=== PATIENT | female | born 1970 | race African-American/Black ===

== ENCOUNTER 2018-03-21 04:52 | Day surgery (SDC) | payer OTHER ==
[2018-03-19 13:59] VITALS: BMI 22.3
[2018-03-21] MEDS ORDERED: MIDAZOLAM HCL 2 MG/2 ML SINGLE DOSE VIAL ONE (11:04)
[2018-03-21] MEDS ORDERED: PROPOFOL 20 ML ONE (11:04)
[2018-03-21] MEDS ORDERED: DEXAMETHASONE SOD PHOSPHATE 4 MG/1 ML VIAL ONE (11:04)
[2018-03-21] MEDS ORDERED: oxyCODONE HCL 5 MG TABLET PO PRN (11:05)
[2018-03-21] MEDS ORDERED: ONDANSETRON 4 MG/2 ML VIAL IVPUSH PRN (11:05)
[2018-03-21] MEDS ORDERED: PROMETHAZINE HCL 25 MG/1 ML VIAL IVPUSH PRN (11:05)
[2018-03-21] MEDS ORDERED: LACTATED RINGERS SOLUTION 1,000 ML IV SCH (11:15)
--- NOTE | 2018-03-21 11:22 | HP ---
History & Physical Update - History History: No Change Currently as noted:: Prior H&P from 02/20/18 was reveiwed - Physical Physical: No Change - Assessment Assessment: No Change - Plan Plan: No Change (47yo P0 with fibroid uterus, and endometrial mass(es) admitted for hysteroscopy, resection of endom mass(es), and D&C. We had discussed the risks, benefits, alternatives of surgery at length including but not limited to infection, bleeding, scarring, perforation, amenorrhea, infertility, hysterectomy, etc. The pt verbalized understanding and requested to proceed with surgery. I emphasized that all surgeries have risks and no guarantees can be provided.)
[2018-03-21] MEDS ORDERED: ceFAZolin SODIUM 1 GM VIAL IVPB ONE (11:36)
--- NOTE | 2018-03-21 14:37 | OP ---
Operative Note - Note: Operative Date: 03/21/18 Pre-Operative Diagnosis: Endometrial mass, fibroid uterus Operation: Hysteroscopic myomectomy, D&C Findings: 1. EUA revealed a large and bulky uterus with multiple fibroids, including a large posterior myoma filling sacral space and displacing the uterus anteriorly. 2. Hysteroscopy revealed enlarged uterine cavity with a right lateral lower uterine submucosal myoma and a larger left lateral submucosal myoma below left cornual region Post-Operative Diagnosis: Same as Pre-op Surgeon: Ashvin Onofre Anesthesiologist/NOVELTY CHAIN MAKER: Radha Tijerina (Dr. Soto) Anesthesia: General Specimens Removed: fragments of uterine myoma(s), endometrial curettings Estimated Blood Loss (mls): 30 Blood Volume Replaced (mls): 0 Fluid Volume Replaced (mls): 800 Operative Report Dictated: Yes
[2018-03-21 15:01] VITALS: BP 130/75; PULSE 63; TEMP 97.5
--- NOTE | 2018-03-22 06:43 | OP ---
DATE OF OPERATION: 03/21/2018 PREOPERATIVE DIAGNOSIS: Endometrial masses, fibroid uterus. POSTOPERATIVE DIAGNOSIS: Fibroid uterus with submucosal myomas. PROCEDURE: Hysteroscopy, myomectomy, dilation and curettage. SURGEON: Krunal Onofre MD ANESTHESIOLOGIST: Jensen Soto MD and Radha Tijerina CRNA ANESTHESIA: General. COMPLICATIONS: None. ESTIMATED BLOOD LOSS: 30 mL. IV FLUIDS: 800 mL of crystalloid. PATHOLOGY: Fragments of uterine myomas status post resection, endometrial curettings. COMPLICATIONS: None. FINDINGS: Examination under anesthesia revealed a large, bulky fibroid uterus. Multiple fibroids were noted on pelvic examination including a large posterior myoma filling the sacral space and displacing the uterus anteriorly. During the hysteroscopy, the cervix was noted to be displaced anteriorly, and the uterine cavity contained a smaller right lateral myoma in the lower uterine segment as well as a larger left lateral submucosal myoma just below the left corneal region of the uterus. DESCRIPTION OF PROCEDURE: The patient was met preoperatively. Risks, benefits, and alternatives of surgery were discussed. The risks of procedure were explained including, but not limited to, infection, perforation, bleeding, scarring, amenorrhea, infertility, possible need for hysterectomy, possible need for additional surgery to repair any complications. The patient verbalized understanding. The consent form was reviewed and signed. The patient requested to proceed with surgery. She was then taken to the OR with the IV running. The patient was placed on the surgical table in the supine position. The general endotracheal anesthesia was achieved without difficulty. The patient was then placed in a dorsal lithotomy position using adjustable Dominic stirrups. She was examined under anesthesia with the findings as described above. The patient was then prepped and draped in the usual sterile fashion. A time-out procedure was conducted as per standard protocol. A weighed speculum was then introduced inside the patient's vagina. The cervix was visualized and grasped with a single-tooth tenaculum. The cervical os was dilated to accommodate a size 23 Snyder dilator. A hysteroscope was then introduced under direct visualization into the uterine cavity. The survey of the uterine cavity revealed an enlarged uterine cavity with polypoid-appearing endometrium. A smaller submucosal fibroid was noted in the right lateral region of the lower uterine segment. A larger submucosal myoma was noted in the left upper region of the uterus just below the cornua. The larger fibroid measured approximately 3 cm. The rest of the uterine cavity appeared to be within normal limits. A Symphion resectoscope was then used to excise all visualized submucosal fibroids. A normal uterine cavity was noted at the end of the procedure. Good hemostasis was also confirmed. Once the resection of the fibroids was completed, the hysteroscope was removed from the patient. A general uterine curettage was performed. The tissue was sent to Pathology. Once again, the hysteroscope was introduced inside the uterine cavity, and good hemostasis was confirmed. Following this, all of the all of the instruments were removed from the patient. Sponge, lap, and instrument counts were correct. Once again, good hemostasis was confirmed. The patient was then returned to supine position. She was transferred to recovery room awake and in stable condition. KRUNAL ONOFRE M.D. [id number]
--- NOTE | 2018-03-25 15:13 | PATH ---
Surgical Pathology Report Patient Name: GINA BERNAL [facility]. Rec. #: [id number] /Age/Gender: 1970 (Age: 47) / F Account: [id number] Location: [facility] SURGICAL Taken: 03/21/2018 Received: 03/24/2018 Reported: 03/25/2018 Physicians: Ashvin Onofre M.D. Specimen(s) Received A: ENDOMETRIAL CURETTINGS B: FIBROIDS Clinical History Fibroid uterus, polyp of corpus uteri Final Diagnosis A. ENDOMETRIAL CURETTINGS, DILATION AND CURETTAGE: FRAGMENTS OF PROLIFERATIVE ENDOMETRIUM AND SMOOTH MUSCLE FRAGMENTS CONSISTENT WITH LEIOMYOMA. SCANT BENIGN CERVICAL TISSUE. B. FIBROIDS, HYSTEROSCOPIC FIBROID RESECTION: BROAD BUNDLES OF SMOOTH MUSCLE CONSISTENT WITH LEIOMYOMA AND FRAGMENTS OF ENDOMETRIAL POLYP. SCANT BENIGN ENDOCERVICAL TISSUE. Electronically Signed Becca Cali M.D. Gross Description A. Received in formalin labeled "endometrial curettings," is a 4.0 x 3.0 x 0.3 cm aggregate of piña-brown soft tissue fragments admixed with blood clot. The formalin is filtered and the specimen is entirely submitted in 3 cassettes. B. Received in formalin labeled "fibroids," is a 2.8 x 2.5 x 0.3 cm aggregate of piña soft tissue fragments admixed with mucus. The specimen is submitted in toto in 2 cassettes. 03/24/2018 [facility]03/24/2018
== END 2018-03-21 15:30 | disposition home or self-care (01) ==
LOC: JASU-SURG 04:52
PROVIDERS: ATTEND Obstetrics & Gynecology
PROC: 0UB98ZZ Excision of Uterus, Via Natural or Artificial Opening Endoscopic (ICD-10-PCS; 2018-03-21)
PROC: 0UDB7ZX Extraction of Endometrium, Via Natural or Artificial Opening, Diagnostic (ICD-10-PCS; principal; 2018-03-21 10:30)
PROC: 0UJD8ZZ Inspection of Uterus and Cervix, Via Natural or Artificial Opening Endoscopic (ICD-10-PCS; 2018-03-21 10:30)
DX: D25.0 Submucous leiomyoma of uterus (principal)
CPT/HCPCS: 36415; 84703; 86850; 86900; 86901; 88305-TC; 94760